=== PATIENT | female | born 1960 | race Caucasian/White ===

== ENCOUNTER 2024-03-06 08:04 | Inpatient (IN) | payer BC ==
[~2024-03-06] VITALS: Ht 177.8 cm; Wt 99.3 kg
[2024-03-06 08:06] VITALS: PULSE 95; RESP 22; TEMP 98.3; O2SAT 95
[2024-03-06] MEDS: ALPRAZolam 0.25 MG TABLET PO ONE (08:24)
[2024-03-06] MEDS: MORPHINE 4 MG INJ. 4 MG/ML VIAL IM ONE (09:23)
[2024-03-06 09:34] LABS: BASOPHILS % (AUTO) 0.2 % (0.0-2.0); HEMATOCRIT 37.5 % (36-48); HEMOGLOBIN 13.3 g/dL (12.0-16.0); LYMPHOCYTES # (AUTO) 1.4 K/uL (1.0-5.5); MEAN CORPUSCULAR HEMOGLOBIN 32 pg (27-31); MEAN CORPUSCULAR HGB CONC 36 % (32-36); MEAN CORPUSCULAR VOLUME 90 fL (79.0-98.0); MONOCYTES # (AUTO) 0.6 K/uL (0.0-1.0); MONOCYTES % (AUTO) 4.6 % (1.7-9.3); NEUTROPHILS # (AUTO) 10.8 K/uL (1.8-7.7); NEUTROPHILS % (AUTO) 84.2 % (40.0-70.0); PLATELET COUNT (AUTO) 228 K/uL (130-430); RED BLOOD CELL COUNT(AUTO) 4.16 MIL/uL (4.2-6.2); RED CELL DISTRIBUTION WIDTH 14.4 % (9.0-15.0); WHITE BLOOD COUNT (AUTO) 12.8 K/uL (4.8-10.8)
[2024-03-06 09:54] LABS: PROTHROMBIN TIME 10.3 SECS (9.5-12.5)
[2024-03-06] MEDS ORDERED: ATOR-1 PO (10:02)
[2024-03-06 10:10] LABS: ALANINE AMINOTRANSFERASE 19 U/L (12-78); ALBUMIN 3.5 g/dL (3.4-4.8); ANION GAP 11 (5-15); ASPARTATE AMINOTRANSFERASE 12 U/L (10-37); BILIRUBIN,DIRECT 0.2 mg/dL (0.0-0.3); CALCIUM 8.4 mg/dL (8.4-11.0); CARBON DIOXIDE 24 mmol/L (23-29); CHLORIDE 108 mmol/L (98-107); CREATININE 0.74 mg/dL (0.55-1.30); GFR AFRICAN AMERICAN 102 mL/min (>90); GLUCOSE 131 mg/dL (74-106); POTASSIUM 3.8 mmol/L (3.5-5.1); SODIUM SERUM 143 mmol/L (136-145); TOTAL BILIRUBIN 0.8 mg/dL (0.0-1.0); TOTAL PROTEIN, SERUM 6.6 g/dL (6.4-8.3); UREA NITROGEN, BLOOD 14 mg/dL (8-21)
[2024-03-06 10:11] LABS: GFR NON AFRICAN-AMERICAN 85 mL/min (>90)
[2024-03-06] MEDS ORDERED: HYDROcodone/ACETAMIN 5-325 MG TAB (NORCO/ VICODIN) PO PRN (10:45)
[2024-03-06] MEDS ORDERED: MORPHINE 4 MG INJ. 4 MG/ML VIAL IVP PRN (10:45)
[2024-03-06] MEDS ORDERED: ONDANSETRON HCL 4 MG/2 ML VIAL IVP PRN ×2 (10:45→11:00)
[2024-03-06] MEDS ORDERED: MORPHINE 2 MG/ML INJ. SYRINGE IVP PRN (10:58)
[2024-03-06 11:52] VITALS: BP_SYST 140; PULSE 87; RESP 18; TEMP 99.2
[2024-03-06 12:00] VITALS: BP_SYST 130; PULSE 82; RESP 18; TEMP 98; O2SAT 96
[2024-03-06 12:28] LABS: BILIRUBIN,URINE NEGATIVE (NEGATIVE); BLOOD, URINE NEGATIVE (NEGATIVE); CLARITY/URINE CLEAR (CLEAR); COLOR,URINE YELLOW (YELLOW); GLUCOSE,URINE NEGATIVE (NEGATIVE); KETONES,URINE TRACE (NEGATIVE); LEUKOCYTE ESTERASE ,URINE NEGATIVE (NEGATIVE); NITRITE, URINE NEGATIVE (NEGATIVE); PROTEIN URINE NEGATIVE (NEGATIVE); UROBILINOGEN,URINE 0.2 (0.2-1.0)
[2024-03-06 14:07] VITALS: O2SAT 0
[2024-03-06] MEDS ORDERED: LORazepam 1 MG TABLET PO PRN (16:15)
[2024-03-06] MEDS: MORPHINE 2 MG/ML INJ. SYRINGE IVP PRN (16:18)
[2024-03-06 20:00] VITALS: BP_SYST 125; PULSE 87; RESP 18; TEMP 99; O2SAT 95
[2024-03-06 22:50] LABS: THYROID STIMULATING HORMONE 1.52 uIu/mL (0.36-3.74)
[2024-03-06 22:53] LABS: PROTHROMBIN TIME 10.3 SECS (9.5-12.5)
[2024-03-06] MEDS: ATORVASTATIN 20 MG TABLET PO SCH (23:00)
[2024-03-06] MEDS: HYDROcodone/ACETAMIN 5-325 MG TAB (NORCO/ VICODIN) PO PRN (23:10)
[2024-03-06] MEDS: HEPARIN SODIUM,PORCINE 5,000 UNITS/ML VIAL SUBCUT SCH (23:50)
[2024-03-07 00:36] VITALS: BP_SYST 128; PULSE 76; RESP 15; TEMP 98; O2SAT 96
[2024-03-07 07:31] VITALS: BP_SYST 121; PULSE 79; RESP 16; TEMP 97.8; O2SAT 94
[2024-03-07 09:53] LABS: BASOPHILS % (AUTO) 0.3 % (0.0-2.0); HEMATOCRIT 37.7 % (36-48); LYMPHOCYTES # (AUTO) 1.3 K/uL (1.0-5.5); LYMPHOCYTES % (AUTO) 11.8 % (20.5-51.5); MEAN CORPUSCULAR HEMOGLOBIN 32 pg (27-31); MEAN CORPUSCULAR HGB CONC 35 % (32-36); MEAN CORPUSCULAR VOLUME 91 fL (79.0-98.0); MONOCYTES # (AUTO) 0.7 K/uL (0.0-1.0); NEUTROPHILS # (AUTO) 9.2 K/uL (1.8-7.7); NEUTROPHILS % (AUTO) 81.9 % (40.0-70.0); PLATELET COUNT (AUTO) 237 K/uL (130-430); RED BLOOD CELL COUNT(AUTO) 4.13 MIL/uL (4.2-6.2); RED CELL DISTRIBUTION WIDTH 14.3 % (9.0-15.0); WHITE BLOOD COUNT (AUTO) 11.2 K/uL (4.8-10.8)
[2024-03-07 10:06] LABS: CALCIUM 8.5 mg/dL (8.4-11.0); CREATININE 0.74 mg/dL (0.55-1.30); POTASSIUM 3.7 mmol/L (3.5-5.1)
[2024-03-07 12:29] VITALS: BP_SYST 130; PULSE 94; RESP 18; TEMP 97.6; O2SAT 95
[2024-03-07] MEDS: DOCUSATE SODIUM 100 MG CAPSULE PO PRN (16:11)
[2024-03-07 17:08] VITALS: BP_SYST 125; PULSE 89; RESP 18; TEMP 98.3; O2SAT 95
[2024-03-07 20:00] VITALS: BP_SYST 126; PULSE 84; RESP 18; TEMP 99; O2SAT 94
[2024-03-08 00:44] VITALS: BP_SYST 126; PULSE 78; RESP 16; TEMP 97.9; O2SAT 98
[2024-03-08 05:36] LABS: BASOPHILS % (AUTO) 0.2 % (0.0-2.0); EOSINOPHILS % (AUTO) 0.1 % (0.0-4.0); HEMATOCRIT 37.4 % (36-48); HEMOGLOBIN 13.2 g/dL (12.0-16.0); LYMPHOCYTES # (AUTO) 2.2 K/uL (1.0-5.5); LYMPHOCYTES % (AUTO) 19.3 % (20.5-51.5); MEAN CORPUSCULAR HEMOGLOBIN 32 pg (27-31); MEAN CORPUSCULAR HGB CONC 35 % (32-36); MEAN CORPUSCULAR VOLUME 91 fL (79.0-98.0); MONOCYTES % (AUTO) 8.9 % (1.7-9.3); NEUTROPHILS % (AUTO) 71.5 % (40.0-70.0); PLATELET COUNT (AUTO) 240 K/uL (130-430); RED BLOOD CELL COUNT(AUTO) 4.13 MIL/uL (4.2-6.2); RED CELL DISTRIBUTION WIDTH 14.1 % (9.0-15.0); WHITE BLOOD COUNT (AUTO) 11.2 K/uL (4.8-10.8)
[2024-03-08 05:58] LABS: CALCIUM 8.5 mg/dL (8.4-11.0); CREATININE 0.64 mg/dL (0.55-1.30); POTASSIUM 3.5 mmol/L (3.5-5.1); TOTAL BILIRUBIN 1.4 mg/dL (0.0-1.0); TOTAL PROTEIN, SERUM 6.4 g/dL (6.4-8.3)
[2024-03-08 08:19] VITALS: BP_SYST 126; PULSE 84; RESP 20; TEMP 98.5; O2SAT 94
[2024-03-08 09:30] VITALS: O2SAT 94
[2024-03-08 13:24] VITALS: BP_SYST 126; PULSE 85; RESP 17; TEMP 99.3; O2SAT 95
[2024-03-08 18:09] VITALS: BP_SYST 133; PULSE 79; RESP 17; TEMP 97.6; O2SAT 95
[2024-03-08] MEDS: BISACODYL 10 MG/SUPPOSITORY RC ONE (20:40)
[2024-03-09 06:49] LABS: BASOPHILS % (AUTO) 0.2 % (0.0-2.0); EOSINOPHILS % (AUTO) 0.1 % (0.0-4.0); HEMATOCRIT 38.6 % (36-48); HEMOGLOBIN 13.3 g/dL (12.0-16.0); LYMPHOCYTES # (AUTO) 2.2 K/uL (1.0-5.5); LYMPHOCYTES % (AUTO) 18.7 % (20.5-51.5); MEAN CORPUSCULAR HEMOGLOBIN 32 pg (27-31); MEAN CORPUSCULAR HGB CONC 34 % (32-36); MEAN CORPUSCULAR VOLUME 92 fL (79.0-98.0); NEUTROPHILS # (AUTO) 8.8 K/uL (1.8-7.7); PLATELET COUNT (AUTO) 253 K/uL (130-430); RED BLOOD CELL COUNT(AUTO) 4.21 MIL/uL (4.2-6.2); RED CELL DISTRIBUTION WIDTH 14.3 % (9.0-15.0)
[2024-03-09 07:19] LABS: CALCIUM 8.5 mg/dL (8.4-11.0); CREATININE 0.61 mg/dL (0.55-1.30); POTASSIUM 3.7 mmol/L (3.5-5.1)
[2024-03-09 08:15] VITALS: BP_SYST 124; PULSE 86; RESP 16; TEMP 97; O2SAT 92
[2024-03-09] MEDS ORDERED: LIDOCAINE 1%, 20 ML MDV 20 ML ONE (09:32)
[2024-03-09 12:45] VITALS: BP_SYST 122; PULSE 82; RESP 18; TEMP 98.8; O2SAT 94
[2024-03-09 16:30] VITALS: BP_SYST 130; PULSE 96; RESP 18; TEMP 99.1; O2SAT 95
[2024-03-09 20:00] VITALS: O2SAT 96
[2024-03-09 20:38] VITALS: BP_SYST 133; PULSE 94; RESP 18; TEMP 98.3; O2SAT 96
[2024-03-10 01:34] VITALS: BP_SYST 129; PULSE 84; RESP 18; TEMP 98.7; O2SAT 96
[2024-03-10 05:47] LABS: BASOPHILS % (AUTO) 0.2 % (0.0-2.0); EOSINOPHILS % (AUTO) 0.2 % (0.0-4.0); HEMATOCRIT 37.8 % (36-48); HEMOGLOBIN 13.1 g/dL (12.0-16.0); LYMPHOCYTES % (AUTO) 17.7 % (20.5-51.5); MEAN CORPUSCULAR HEMOGLOBIN 32 pg (27-31); MEAN CORPUSCULAR HGB CONC 35 % (32-36); MEAN CORPUSCULAR VOLUME 92 fL (79.0-98.0); MONOCYTES # (AUTO) 0.9 K/uL (0.0-1.0); MONOCYTES % (AUTO) 7.9 % (1.7-9.3); NEUTROPHILS # (AUTO) 8.2 K/uL (1.8-7.7); PLATELET COUNT (AUTO) 266 K/uL (130-430); RED BLOOD CELL COUNT(AUTO) 4.12 MIL/uL (4.2-6.2); RED CELL DISTRIBUTION WIDTH 14.1 % (9.0-15.0)
[2024-03-10 06:37] LABS: CALCIUM 8.5 mg/dL (8.4-11.0); CREATININE 0.65 mg/dL (0.55-1.30); POTASSIUM 3.7 mmol/L (3.5-5.1)
[2024-03-10 08:02] VITALS: O2SAT 95
[2024-03-10] MEDS: CHOLECALCIFEROL (VITAMIN D3) 2,000 UNIT TABLET PO SCH (09:00)
[2024-03-10] MEDS: fentaNYL CITRATE/PF 100 MCG/2 ML AMP IVP ONE (10:29)
[2024-03-10] MEDS ORDERED: LIDOCAINE 1%, 20 ML MDV 20 ML ONE (10:35)
[2024-03-10] MEDS: MIDAZOLAM HCL 5 MG/5 ML VIAL ONE (11:17)
[2024-03-10] MEDS: fentaNYL CITRATE/PF 100 MCG/2 ML AMP ONE (11:17)
[2024-03-10 11:51] VITALS: BP_SYST 125; PULSE 90; RESP 17; TEMP 98; O2SAT 95
[2024-03-10 12:06] LABS: PTH, INTACT 26 pg/mL (15-65)
[2024-03-10 18:35] VITALS: BP_SYST 124; PULSE 93; RESP 18; TEMP 98.5; O2SAT 95
[2024-03-10 20:00] VITALS: O2SAT 96
[2024-03-10 20:21] VITALS: BP_SYST 137; PULSE 92; RESP 18; TEMP 98.7; O2SAT 96
[2024-03-10] MEDS: HEPARIN SODIUM,PORCINE 5,000 UNITS/ML VIAL SUBCUT SCH (21:50)
[2024-03-11 00:58] VITALS: BP_SYST 126; PULSE 90; RESP 17; TEMP 98.8; O2SAT 95
[2024-03-11 05:34] LABS: BASOPHILS % (AUTO) 0.2 % (0.0-2.0); EOSINOPHILS # (AUTO) 0.1 K/uL (0.0-0.4); EOSINOPHILS % (AUTO) 0.5 % (0.0-4.0); HEMATOCRIT 36.5 % (36-48); HEMOGLOBIN 12.6 g/dL (12.0-16.0); LYMPHOCYTES # (AUTO) 1.8 K/uL (1.0-5.5); MEAN CORPUSCULAR HEMOGLOBIN 32 pg (27-31); MEAN CORPUSCULAR HGB CONC 35 % (32-36); MEAN CORPUSCULAR VOLUME 92 fL (79.0-98.0); MONOCYTES # (AUTO) 0.7 K/uL (0.0-1.0); MONOCYTES % (AUTO) 7.3 % (1.7-9.3); PLATELET COUNT (AUTO) 285 K/uL (130-430); RED BLOOD CELL COUNT(AUTO) 3.97 MIL/uL (4.2-6.2); RED CELL DISTRIBUTION WIDTH 14.3 % (9.0-15.0); WHITE BLOOD COUNT (AUTO) 9.7 K/uL (4.8-10.8)
[2024-03-11 06:03] LABS: CALCIUM 8.6 mg/dL (8.4-11.0); CREATININE 0.58 mg/dL (0.55-1.30); POTASSIUM 3.8 mmol/L (3.5-5.1)
[2024-03-11 08:00] VITALS: BP_SYST 127; PULSE 91; RESP 20; TEMP 97.1; O2SAT 93
[2024-03-11 08:31] VITALS: O2SAT 95
[2024-03-11 12:44] VITALS: BP_SYST 123; PULSE 96; RESP 18; TEMP 98.7; O2SAT 95
[2024-03-11 16:39] VITALS: BP_SYST 125; PULSE 89; RESP 18; TEMP 97.1; O2SAT 97
[2024-03-11 20:00] VITALS: BP_SYST 129; PULSE 80; RESP 18; TEMP 97.7; O2SAT 95; O2SAT 98
[2024-03-12 01:22] VITALS: BP_SYST 130; PULSE 92; RESP 16; TEMP 97.9; O2SAT 94
[2024-03-12 05:52] LABS: BASOPHILS % (AUTO) 0.4 % (0.0-2.0); EOSINOPHILS # (AUTO) 0.1 K/uL (0.0-0.4); EOSINOPHILS % (AUTO) 1.5 % (0.0-4.0); HEMATOCRIT 36.7 % (36-48); HEMOGLOBIN 12.3 g/dL (12.0-16.0); LYMPHOCYTES # (AUTO) 1.4 K/uL (1.0-5.5); LYMPHOCYTES % (AUTO) 15.3 % (20.5-51.5); MEAN CORPUSCULAR HEMOGLOBIN 31 pg (27-31); MEAN CORPUSCULAR HGB CONC 34 % (32-36); MEAN CORPUSCULAR VOLUME 93 fL (79.0-98.0); MONOCYTES # (AUTO) 0.6 K/uL (0.0-1.0); MONOCYTES % (AUTO) 6.8 % (1.7-9.3); NEUTROPHILS # (AUTO) 7.1 K/uL (1.8-7.7); PLATELET COUNT (AUTO) 316 K/uL (130-430); RED BLOOD CELL COUNT(AUTO) 3.96 MIL/uL (4.2-6.2); RED CELL DISTRIBUTION WIDTH 13.9 % (9.0-15.0); WHITE BLOOD COUNT (AUTO) 9.4 K/uL (4.8-10.8)
[2024-03-12 06:20] LABS: CALCIUM 8.8 mg/dL (8.4-11.0); CREATININE 0.58 mg/dL (0.55-1.30); POTASSIUM 3.7 mmol/L (3.5-5.1)
[2024-03-12 08:02] VITALS: BP_SYST 128; PULSE 78; RESP 16; TEMP 97; O2SAT 95
[2024-03-12 09:30] VITALS: O2SAT 95
[2024-03-12 11:35] VITALS: BP_SYST 122; PULSE 16; RESP 16; TEMP 97.8; O2SAT 97
[2024-03-12 15:40] VITALS: BP_SYST 135; PULSE 92; RESP 18; TEMP 98.7; O2SAT 95
[2024-03-12 22:00] VITALS: BP_SYST 126; PULSE 60; RESP 17; TEMP 98; O2SAT 94
[2024-03-13 04:00] VITALS: BP_SYST 128; PULSE 64; RESP 22; TEMP 97; O2SAT 97
[2024-03-13 06:52] LABS: BASOPHILS % (AUTO) 0.2 % (0.0-2.0); EOSINOPHILS # (AUTO) 0.1 K/uL (0.0-0.4); EOSINOPHILS % (AUTO) 1.6 % (0.0-4.0); HEMATOCRIT 36.6 % (36-48); HEMOGLOBIN 12.5 g/dL (12.0-16.0); LYMPHOCYTES # (AUTO) 1.6 K/uL (1.0-5.5); LYMPHOCYTES % (AUTO) 18.4 % (20.5-51.5); MEAN CORPUSCULAR HEMOGLOBIN 31 pg (27-31); MEAN CORPUSCULAR HGB CONC 34 % (32-36); MEAN CORPUSCULAR VOLUME 92 fL (79.0-98.0); MONOCYTES # (AUTO) 0.6 K/uL (0.0-1.0); MONOCYTES % (AUTO) 7.3 % (1.7-9.3); NEUTROPHILS # (AUTO) 6.2 K/uL (1.8-7.7); NEUTROPHILS % (AUTO) 72.5 % (40.0-70.0); PLATELET COUNT (AUTO) 362 K/uL (130-430); RED BLOOD CELL COUNT(AUTO) 3.99 MIL/uL (4.2-6.2); RED CELL DISTRIBUTION WIDTH 14.2 % (9.0-15.0); WHITE BLOOD COUNT (AUTO) 8.5 K/uL (4.8-10.8)
[2024-03-13 07:04] LABS: CALCIUM 8.8 mg/dL (8.4-11.0); CREATININE 0.54 mg/dL (0.55-1.30); POTASSIUM 3.9 mmol/L (3.5-5.1)
[2024-03-13 07:40] VITALS: BP_SYST 124; PULSE 78; RESP 17; TEMP 97.3; O2SAT 95
[2024-03-13] MEDS: DOCUSATE SODIUM 250 MG CAPSULE PO SCH (09:00)
[2024-03-13 10:30] VITALS: O2SAT 95
[2024-03-13] MEDS: BISACODYL 10 MG/SUPPOSITORY RC ONE (10:49)
[2024-03-13 12:00] VITALS: BP_SYST 125; PULSE 80; RESP 15; TEMP 98.1; O2SAT 95
[2024-03-13 16:00] VITALS: BP_SYST 126; PULSE 72; RESP 16; TEMP 98.2; O2SAT 95
[2024-03-13 20:00] VITALS: BP_SYST 122; PULSE 82; RESP 18; TEMP 98.2; O2SAT 93
[2024-03-14 01:16] VITALS: BP_SYST 122; PULSE 74; RESP 18; TEMP 97.6; O2SAT 95
[2024-03-14 06:39] LABS: BASOPHILS % (AUTO) 0.4 % (0.0-2.0); EOSINOPHILS # (AUTO) 0.2 K/uL (0.0-0.4); EOSINOPHILS % (AUTO) 2.3 % (0.0-4.0); HEMATOCRIT 35.5 % (36-48); HEMOGLOBIN 12.6 g/dL (12.0-16.0); LYMPHOCYTES # (AUTO) 2.4 K/uL (1.0-5.5); LYMPHOCYTES % (AUTO) 28.2 % (20.5-51.5); MEAN CORPUSCULAR HEMOGLOBIN 33 pg (27-31); MEAN CORPUSCULAR HGB CONC 36 % (32-36); MEAN CORPUSCULAR VOLUME 93 fL (79.0-98.0); MONOCYTES # (AUTO) 0.6 K/uL (0.0-1.0); MONOCYTES % (AUTO) 7.6 % (1.7-9.3); NEUTROPHILS # (AUTO) 5.3 K/uL (1.8-7.7); NEUTROPHILS % (AUTO) 61.5 % (40.0-70.0); PLATELET COUNT (AUTO) 402 K/uL (130-430); RED BLOOD CELL COUNT(AUTO) 3.82 MIL/uL (4.2-6.2); WHITE BLOOD COUNT (AUTO) 8.6 K/uL (4.8-10.8)
[2024-03-14 07:01] LABS: CALCIUM 8.6 mg/dL (8.4-11.0); CREATININE 0.61 mg/dL (0.55-1.30); POTASSIUM 3.7 mmol/L (3.5-5.1)
[2024-03-14 08:00] VITALS: O2SAT 96
[2024-03-14 08:01] VITALS: BP_SYST 127; PULSE 80; RESP 17; TEMP 97.3; O2SAT 96
[2024-03-14 11:05] VITALS: BP_SYST 124; PULSE 72; RESP 18; TEMP 98.5; O2SAT 93
[2024-03-14] MEDS: GLYCERIN 1 SUPP.RECT (ADULT) RC ONE (16:29)
[2024-03-14 16:31] VITALS: BP_SYST 122; PULSE 70; RESP 18; TEMP 98.1; O2SAT 95
[2024-03-14 20:00] VITALS: BP_SYST 123; PULSE 85; RESP 16; TEMP 98.9; O2SAT 93
[2024-03-15] VITALS: BP_SYST 116; PULSE 75; RESP 16; TEMP 98.4; O2SAT 95
[2024-03-15 05:34] LABS: BASOPHILS % (AUTO) 0.3 % (0.0-2.0); EOSINOPHILS # (AUTO) 0.1 K/uL (0.0-0.4); EOSINOPHILS % (AUTO) 1.8 % (0.0-4.0); HEMATOCRIT 34.7 % (36-48); HEMOGLOBIN 12.1 g/dL (12.0-16.0); LYMPHOCYTES % (AUTO) 23.6 % (20.5-51.5); MEAN CORPUSCULAR HEMOGLOBIN 32 pg (27-31); MEAN CORPUSCULAR HGB CONC 35 % (32-36); MEAN CORPUSCULAR VOLUME 92 fL (79.0-98.0); MONOCYTES # (AUTO) 0.7 K/uL (0.0-1.0); MONOCYTES % (AUTO) 7.9 % (1.7-9.3); NEUTROPHILS # (AUTO) 5.5 K/uL (1.8-7.7); NEUTROPHILS % (AUTO) 66.4 % (40.0-70.0); PLATELET COUNT (AUTO) 407 K/uL (130-430); RED BLOOD CELL COUNT(AUTO) 3.77 MIL/uL (4.2-6.2); RED CELL DISTRIBUTION WIDTH 14.2 % (9.0-15.0); WHITE BLOOD COUNT (AUTO) 8.3 K/uL (4.8-10.8)
[2024-03-15 06:01] LABS: CALCIUM 8.5 mg/dL (8.4-11.0); CREATININE 0.6 mg/dL (0.55-1.30); POTASSIUM 3.9 mmol/L (3.5-5.1)
[2024-03-15 08:00] VITALS: BP_SYST 122; PULSE 88; RESP 20; TEMP 98.1; O2SAT 94
[2024-03-15 12:01] VITALS: BP_SYST 125; PULSE 72; RESP 18; TEMP 98.2; O2SAT 99
[2024-03-15 16:05] VITALS: BP_SYST 130; PULSE 77; RESP 19; TEMP 97.6; O2SAT 98
[2024-03-15] MEDS: ZOLPIDEM TARTRATE 5 MG TABLET PO PRN (20:47)
== END 2024-03-15 22:49 | disposition short-term general hospital (02) | DRG 478 ==
LOC: SED 08:04 → SMU 10:37
PROVIDERS: ADMIT Internal Medicine; ATTEND Internal Medicine
PROC: 0GBG3ZX Excision of Left Thyroid Gland Lobe, Percutaneous Approach, Diagnostic (ICD-10-PCS; 2024-03-09)
PROC: 0QB60ZX Excision of Right Upper Femur, Open Approach, Diagnostic (ICD-10-PCS; principal; 2024-03-10)
DX: M84.451A Pathological fracture, right femur, initial encounter for fracture (principal); C83.10 Mantle cell lymphoma, unspecified site; E78.5 Hyperlipidemia, unspecified; F41.9 Anxiety disorder, unspecified; E04.1 Nontoxic single thyroid nodule; Z79.899 Other long term (current) drug therapy
CPT/HCPCS: 36415; 71045; 71250-TC; 71260; 72192-TC; 73502; 73552; 74150-TC; 76536; 80048; 80053; 80076; 81001; 81003; 82948; 83519; 83615; 83735; 83970; 84439; 84443; 84484; 85025; 85610; 85651; 85730; 86886; 86900; 86901; 87081; 88173; 88304; 88341; 93005; 96372; 99285; J1644; J2001; J2250; J2270; J3010; Q9967